=== PATIENT | male | born 1970 | race Two or more races ===

== ENCOUNTER 2019-11-07 22:45 | Emergency (ER) | payer MEDICAID ==
[~2019-11-07] VITALS: Ht 175.3 cm; Wt 72.7 kg
[~2019-11-07 22:45] MED LIST: FAMO10TA99 PO
[2019-11-08 00:10] VITALS: BP 152/83
[2019-11-08 01:12] LABS: AMPHET/METH SCREEN,URINE NEGATIVE (NEGATIVE); BARBITURATE SCREEN, URINE NEGATIVE (NEGATIVE); BENZODIAZEPINES SCREEN,URINE NEGATIVE (NEGATIVE); CANNABINOID SCREEN,URINE NEGATIVE (NEGATIVE); COCAINE SCREEN,URINE NEGATIVE (NEGATIVE); METHADONE SCREEN, URINE NEGATIVE (NEGATIVE); OPIATE SCREEN,URINE NEGATIVE (NEGATIVE)
[2019-11-08 01:18] LABS: PHENCYCLIDINE SCREEN,URINE NEGATIVE (NEGATIVE)
== END 2019-11-08 02:00 | disposition home or self-care (01) ==
LOC: EMS 22:46
DX: F43.0 Acute stress reaction (principal)

== ENCOUNTER 2019-12-16 12:15 | Emergency (ER) | payer MEDICAID ==
[~2019-12-16] VITALS: Ht 175.3 cm; Wt 77.3 kg
[2019-12-16 13:03] VITALS: BP 104/71
[2019-12-16] MEDS ORDERED: CEPHALEXIN MONOHYDRATE 500 MG CAPSULE PO ONE (14:45)
[2019-12-16] MEDS ORDERED: KETOROLAC TROMETHAMINE 30 MG/ML VIAL IM ONE (14:45)
[2019-12-16] MEDS ORDERED: BACITRACIN 0.9 GM PACKET OINTMENT TP ONE (16:15)
== END 2019-12-16 17:15 | disposition home or self-care (01) ==
LOC: EMS 12:27
DX: L03.011 Cellulitis of right finger (principal)
CPT/HCPCS: 73610; 96372; 99283; J1885

== ENCOUNTER 2021-07-02 12:19 | Emergency (ER) | payer MEDICAID, OTHER ==
[~2021-07-02] VITALS: Ht 175.3 cm; Wt 85.9 kg
[2021-07-02 14:46] LABS: COVID AG,FIA SOURCE NASOPHARYNGEAL
[2021-07-02 16:16] VITALS: BP 135/82
== END 2021-07-02 16:00 | disposition left against medical advice (07) ==
LOC: EMS 12:32
DX: R05.9 Cough, unspecified (principal); F41.9 Anxiety disorder, unspecified; R07.89 Other chest pain; Z20.822 Contact with and (suspected) exposure to COVID-19
CPT/HCPCS: 71046; 93005; 99285; 36415-L1; 36415-TC